=== PATIENT | female | born 1950 | race African-American/Black ===

== ENCOUNTER 2016-09-30 17:57 | Emergency (ER) | payer MEDICARE, OTHER ==
[~2016-09-30] VITALS: Ht 154.9 cm; Wt 72.6 kg
[~2016-09-30 17:57] MED LIST: ASPI-252 PO; ATOR40TA PO; HYDR-2678 PO; METO25TA9 PO; NITR0.4T6 SL; PANT40TA5 PO; SULF1TAB3 PO
[2016-09-30] MEDS ORDERED: HYDROCODONE/APAP 5/325MG TABLET. PO ONE (20:15)
--- NOTE | 2016-09-30 20:27 | RAD ---
PROCEDURE CT of the head without contrast HISTORY Sudden onset headache TECHNIQUE One or more of the following individualized dose reduction techniques were utilized for this examination: 1. Automated exposure control; 2. Adjustment of the mA and/or kV according to patient size; 3. Use of iterative reconstruction technique. COMPARISON None FINDINGS No areas of hemorrhage or infarction are identified. No mass lesion is seen. There is slight prominence of the sulci in the frontal regions consistent with mild atrophy. The basal cisterns are well maintained. There is no shift of the midline structures. Bone windows are unremarkable. IMPRESSION No acute intracranial abnormality is seen. Electronically signed by: Karen Valenzuela (Sep 30, 2016 20:25:27)
[2016-09-30 20:42] LABS: OBC FLU VALID
--- NOTE | 2016-09-30 20:49 | PHYS DOC ---
Past Medical History Past Medical History: CAD, High Cholesterol, Hypertension, AL Past Surgical History: Coronary Bypass Surgery, Tonsillectomy, Other Additional Past Surgical Histo: cardiac caths with multiple stents, carotid artery stenting Alcohol Use: None Drug Use: None Adult General Chief Complaint Chief Complaint: EARACHE/EAR PAIN [facility] HPI Patient is a 66 year old female who presents with bilateral ear pain, sore throat for one week. Reports today she started having shooting pains up the back of her head suddenly. Review of Systems Review of Systems Constitutional: Denies fever or chills Eyes: Denies change in visual acuity, redness, or eye pain. HENT: Denies nasal congestion. sore throat and left sided ear pain Respiratory: Denies cough or shortness of breath Cardiovascular: No additional information not addressed in HPI GI: Denies abdominal pain, nausea, vomiting, bloody stools or diarrhea : Denies dysuria or hematuria Musculoskeletal: Denies back pain or joint pain Integument: Denies rash or skin lesions Neurologic: Denies focal weakness or sensory changes. Headache intermittently. No photophobia, visual disturbance. Endocrine: Denies polyuria or polydipsia [] Current Medications Current Medications Current Medications Medications (Trade) Dose Ordered Sig/Rene Start Time Stop Time Status Last Admin Dose Admin Acetaminophen/ Hydrocodone Bitart (Lortab 5/325) 1 tab 1X ONCE 09/30/16 20:15 09/30/16 20:16 DC 09/30/16 19:51 1 TAB Allergies Allergies Allergies Coded Allergies Type Severity Reaction Last Updated Verified No Known Drug Allergies 01/23/16 No Physical Exam Physical Exam Constitutional: Well developed, well nourished, no acute distress, non-toxic appearance. HENT: Normocephalic, atraumatic, bilateral external ears normal, oropharynx moist, no oral exudates, nose normal. Left TM erythematous with purulent fluid. No tenderness or swelling at tragus or mastoid Eyes: PERRLA, EOMI, conjunctiva normal, no discharge. No nystagmus Neck: Normal range of motion, no tenderness, supple, no stridor. Cardiovascular:Heart rate regular rhythm, no murmur Lungs & Thorax: Bilateral breath sounds clear to auscultation Abdomen: Bowel sounds normal, soft, no tenderness, no masses, no pulsatile masses. Skin: Warm, dry, no erythema, no rash. Back: No tenderness, no CVA tenderness. Extremities: No tenderness, no cyanosis, no clubbing, ROM intact, no edema. Neurologic: Alert and oriented X 3, normal motor function, normal sensory function, no focal deficits noted. Psychologic: Affect normal, judgement normal, mood normal. [] Current Patient Data Vital Signs Vital Signs Date Time Temp Pulse Resp B/P Pulse Ox O2 Delivery O2 Flow Rate FiO2 09/30/16 20:56 130/57 09/30/16 19:51 18 09/30/16 19:02 98.6 56 96 Room Air 98.6 Lab Values Laboratory Tests Test 09/30/16 20:00 Influenza Type A Antigen Negative (NEGATIVE) Influenza Type B Antigen Negative (NEGATIVE) EKG EKG [] Radiology/Procedures Radiology/Procedures [] Impressions: 1. Otitis Media 2. Pharyngitis Course & Med Decision Making Course & Med Decision Making Pertinent Labs and Imaging studies reviewed. (See chart for details) Discussed with patient at length the liklihood of otitis media resolving without antibiotics and that they are often not necessary and she request antibitoic therapy but agreed to wait two days to see if symptoms resovled prior to taking Dragon Disclaimer Dragon Disclaimer This electronic medical record was generated, in whole or in part, using a voice recognition dictation system. Departure Departure Impression: Primary Impression: Otitis media of left ear Additional Impression: Pharyngitis Disposition: 01 HOME, SELF-CARE Condition: STABLE Referrals: KEVIN CORONA MD (PCP) Patient Instructions: Otitis Media, Adult, Viral and Bacterial Pharyngitis, [id number] Additional Instructions: 1. Take medication as prescribed 2. Return if problems or concerns 3. Follow up with primary in 1-2 days Scripts Hydrocodone/Apap 5-325 (Parks 5-325 Tablet)1 Each Tablet1 Tab PO PRN Q6HRS PRN PAIN #10 TAB Prov:DARLING BRANDT APRN 09/30/16 Amoxicillin 500 Mg Capsule1 Cap PO TID 10 Days Prov:DARLING BRANDT APRN 09/30/16 Problem Qualifiers DARLING BRANDT APRN Sep 30, 2016 20:49
[2016-09-30 20:56] VITALS: BP 130/57
[2016-09-30] MEDS ORDERED: HYDR-971 PO (21:07)
[2016-09-30] MEDS ORDERED: AMOX500C PO (21:07)
[2016-10-01 07:32] LABS: NEGATIVE OBC STREP NEG; POSITIVE OBC STREP POS
== END 2016-09-30 21:13 | disposition home or self-care (01) ==
LOC: ER 17:57
DX: H66.92 Otitis media, unspecified, left ear (principal); J02.9 Acute pharyngitis, unspecified; R51 Headache; E78.00 Pure hypercholesterolemia, unspecified; I10 Essential (primary) hypertension; I25.10 Atherosclerotic heart disease of native coronary artery without angina pectoris; I25.2 Old myocardial infarction; Z95.5 Presence of coronary angioplasty implant and graft
CPT/HCPCS: 70450; 87070; 87804; 87880; 99285-25